=== PATIENT | female | born 2000 | race American Indian/Alaskan Native ===

== ENCOUNTER → 2024-10-04 | Outpatient (BNVA) | payer OTHER, SELFPAY | END | disposition home or self-care (01) | PROVIDERS: PCP Nurse Practitioner Family; Referring Provider Nurse Practitioner Family; Visit Provider Urology | DX: N39.0 Urinary tract infection, site not specified (principal); G40.802 Other epilepsy, not intractable, without status epilepticus | CPT/HCPCS: 81003; 99212; G0463 ==

== ENCOUNTER → 2024-10-04 | Outpatient (CLI) | payer OTHER, SELFPAY ==
[2024-10-04 16:22] LABS: Collection Type, Urine Clean Catch
[2024-10-04 17:36] LABS: Bacteria,Urine Rare; Bilirubin,Urine Negative (Negative); Blood,Urine Trace (Negative); Color,Urine Yellow (Lt Yel-Yel); Glucose, Urine Negative (Negative); Ketones,Urine Negative (Negative); Leukocyte Esterase,Urine Positive (Negative); Nitrite,Urine Negative (Negative); Protein,Urine Trace (Neg - Trace); RBC,Urine 6 /hpf (0-3); Specific Gravity,Urine 1.028 (1.001-1.035); Squamous Epithelial Cell,Urine 1 /hpf (0-5); WBC,Urine 62 /hpf (0-5)
[2024-10-04 17:38] LABS: Clarity,Urine Hazy (Clear/Hazy); Culture Indicated,Urine Yes
== END | disposition home or self-care (01) ==
LOC: SLDO 16:10
PROVIDERS: Referring Provider Urology; Visit Provider Urology
DX: N39.0 Urinary tract infection, site not specified (principal)
CPT/HCPCS: 81001; 87077; 87086; 87186

== ENCOUNTER → 2024-11-15 | Outpatient (CLI) | payer OTHER, SELFPAY ==
--- NOTE | 2024-11-15 09:00 | XR_ITS ---
Exam voiding cystourethrogram. INDICATION: Recurrent UTIs DATE: 11/15/2024, 8:41 AM Fluoroscopy time: 2.7 minutes Dose: 244.18 mGy FINDINGS: A total of 500 cc of Cystografin was instilled into the bladder through a Serrano catheter under direct fluoroscopic evaluation. Bladder appeared to fill normally without evidence of contour abnormality or filling defects. No evidence of vesicoureteral reflux seen. Fluoroscopic evaluation during voiding demonstrated normal complete emptying bladder. Again no evidence of vesicoureteral reflux. No evidence of filling defects or masses. IMPRESSION: Normal voiding cystourethrogram as above
== END | disposition home or self-care (01) ==
PROVIDERS: PCP Nurse Practitioner Family; Referring Provider Urology; Visit Provider Urology
DX: N39.0 Urinary tract infection, site not specified (principal)
CPT/HCPCS: 51600; 74455; Q9958

== ENCOUNTER → 2025-01-14 | Outpatient (CLI) | payer OTHER, SELFPAY ==
--- NOTE | 2025-01-14 14:00 | XR_ITS ---
Examination: Bone densitometry Date and time of exam:January 14, 2025 1411 hours INDICATIONS: Premenopausal, medication for seizures 7 years Technique: Lumbar spine and hip total bone mineralization values of an calculated. Peak reference and age match control results have been displayed. Findings: Lumbar spine total bone mineralization is0.964 gm/cm2. This is 0.8 standard deviations below peak reference. This is 0.7 standard deviations below age-matched controls. Hip total bone mineralization is 0.945 gm/cm2 This is 0.0 standard deviations at peak reference. This is 0.0 standard deviations at age-matched controls Impression: There is normal mineralization based on lumbar spine measurements. There is normal mineralization based on hip measurements
== END | disposition home or self-care (01) ==
LOC: CDIM 13:44
PROVIDERS: Referring Provider Nurse Practitioner Family; Visit Provider Nurse Practitioner Family
DX: Z13.820 Encounter for screening for osteoporosis (principal)
CPT/HCPCS: 77080

== ENCOUNTER → 2025-03-04 | Outpatient (BNVA) | payer OTHER, SELFPAY | END | disposition home or self-care (01) | PROVIDERS: PCP Nurse Practitioner Family; Referring Provider Nurse Practitioner Family; Visit Provider Urology | DX: R35.0 Frequency of micturition (principal); Z87.440 Personal history of urinary (tract) infections | CPT/HCPCS: 81003; 99212; G0463 ==

== ENCOUNTER → 2025-03-29 | Outpatient (BNVA) | payer OTHER, SELFPAY | END | disposition home or self-care (01) | PROVIDERS: PCP Nurse Practitioner Family; Referring Provider Nurse Practitioner Family; Visit Provider Physician Assistant | DX: N39.0 Urinary tract infection, site not specified (principal); M54.50 Low back pain, unspecified; Z87.442 Personal history of urinary calculi | CPT/HCPCS: 99212; G0463 ==

== ENCOUNTER → 2025-04-30 | Outpatient (CLI) | payer OTHER, SELFPAY ==
--- NOTE | 2025-04-30 10:00 | XR_ITS ---
Examination: MRI lumbar spine without contrast Date and time of exam: April 30, 2025 1046 hours INDICATIONS: Seizures with injury to the back, back pain 8 years radiating down the legs Technique: Multiple MRI axial and sagittal sections lumbar spine. Sagittal T2-weighted images, TR 3500, TE 118 T1 weighted transverse sections, TR 688 T8.5, T2-weighted sagittal sections T1 weighted sagittal sections TR 621, TE 30 T2 axial sections, TR 4, 190, TE 84. Findings: Adequate alignment lumbar vertebral bodies No lumbar fracture. Normal marrow signal lumbar vertebral bodies. Disc desiccation L5-S1. No spondylolisthesis. L5-S1 4 mm central left paracentral disc bulge extending to the left foramen with mild left L5 ganglionic compression More cephalad levels unremarkable IMPRESSION: L5-S1 4 mm central left paracentral left foraminal disc bulge producing mild left L5 ganglionic compression
--- NOTE | 2025-04-30 11:44 | XR_ITS ---
Examination: CT brain head without contrast. 2-D sagittal coronal reconstructions Date and time of exam:April 30, 2025 1215 hours INDICATIONS: Seizure 2 days ago, history brain surgery COMPARISON: May 10, 2019 CTDI: vol (mGy):47.2 DLP: (mGycm):1017 Technique: Multiple CT axial sections of the brain have been obtained, 5 mm slice thickness. Contrast has not been administered. 2-D sagittal, coronal reconstructions have been obtained Low dose protocols were performed. One or more of the following dose reduction techniques were used; automated exposure control, adjustment of the mA and/or KV according to patient size, use of iterative reconstruction technique. Findings: Right temporal bone craniotomy defect right temporal lobe encephalomalacia again depicted Ventricles are not enlarged No mass effect upon the ventricular system No acute hemorrhage No cranial vault fracture IMPRESSION: No interval acute hemorrhage or mass effect Consider elective MRI brain follow-up, seizure protocol
== END | disposition home or self-care (01) ==
PROVIDERS: PCP Nurse Practitioner Family; Referring Provider Nurse Practitioner Family; Visit Provider Nurse Practitioner Family
DX: G95.20 Unspecified cord compression (principal); M51.370 Other intervertebral disc degeneration, lumbosacral region with discogenic back pain only; R56.9 Unspecified convulsions; Z98.890 Other specified postprocedural states
CPT/HCPCS: 70450; 72148

== ENCOUNTER → 2025-05-09 | Outpatient (CLI) | payer OTHER, SELFPAY ==
--- NOTE | 2025-05-09 14:00 | XR_ITS ---
Examination: Retroperitoneal ultrasound, complete Technique: Multiple high resolution grayscale images of the retroperitoneum obtained, including kidneys and bladder. Exam date and time:May 09, 2025 1414 hours INDICATIONS: Hematuria episodes years, diagnosis disorders of kidney and ureters several years FINDINGS: Right kidney 11.9 cm cortex 1.5 cm Left kidney 12.5 cm cortex 2.0 cm Mild scar formation Contracted urinary bladder IMPRESSION: Mild bilateral renal parenchymal scar formation
== END | disposition home or self-care (01) ==
LOC: CDIM 13:53
PROVIDERS: PCP Nurse Practitioner Family; Referring Provider Nurse Practitioner Family; Visit Provider Nurse Practitioner Family
DX: N28.89 Other specified disorders of kidney and ureter (principal)
CPT/HCPCS: 76770

== ENCOUNTER → 2025-06-10 | Outpatient (CLI) | payer OTHER, SELFPAY ==
[2025-06-10 12:47] LABS: Collection Type, Urine Clean Catch
[2025-06-10 13:43] LABS: Bilirubin,Urine Negative (Negative); Blood,Urine Negative (Negative); Clarity,Urine Turbid (Clear/Hazy); Color,Urine Yellow (Lt Yel-Yel); Glucose, Urine Negative (Negative); Ketones,Urine Negative (Negative); Leukocyte Esterase,Urine Positive (Negative); Nitrite,Urine Negative (Negative); PH,Urine 5.5 (5.0-7.0); Protein,Urine Negative (Neg - Trace); RBC,Urine 2 /hpf (0-3); Specific Gravity,Urine 1.023 (1.001-1.035); Squamous Epithelial Cell,Urine 12 /hpf (0-5); Urobilinogen,Urine Negative mg/dL (0.0-1.0); WBC,Urine 15 /hpf (0-5)
== END | disposition home or self-care (01) ==
LOC: SLDO 12:33
PROVIDERS: Referring Provider Urology; Visit Provider Urology
DX: N39.0 Urinary tract infection, site not specified (principal)
CPT/HCPCS: 81001; 87086

== ENCOUNTER → 2025-06-11 | Outpatient (BNVA) | payer OTHER, SELFPAY | END | disposition home or self-care (01) | PROVIDERS: PCP Nurse Practitioner Family; Referring Provider Nurse Practitioner Family; Visit Provider Urology | DX: N39.0 Urinary tract infection, site not specified (principal); M54.9 Dorsalgia, unspecified; E66.9 Obesity, unspecified; Z68.27 Body mass index [BMI] 27.0-27.9, adult; Z87.440 Personal history of urinary (tract) infections; Z80.52 Family history of malignant neoplasm of bladder; Z80.3 Family history of malignant neoplasm of breast | CPT/HCPCS: 81003; 99212; G0463 ==

== ENCOUNTER → 2025-07-05 | Outpatient (CLI) | payer BC, SELFPAY ==
--- NOTE | 2025-07-05 09:24 | XR_ITS ---
Examination: Wrist, left 3 views Technique: Wrist AP, oblique, lateral 3 views Date and time of exam: July 05, 2025, 0947 hours INDICATIONS: Left wrist pain beginning 2 days ago. FINDINGS: No fracture or dislocation No arthritic change, no foreign body IMPRESSION: Negative for osseous abnormality
--- NOTE | 2025-07-05 09:24 | XR_ITS ---
Examination: Hand, left 3 views Technique: Hand AP, oblique, lateral 3 views Date and time of exam: July 05, 2025, 0942 hours INDICATIONS: Injury to the hand 2 days ago, hand pain FINDINGS: No acute fracture No dislocation No foreign body IMPRESSION: No acute fracture
== END | disposition home or self-care (01) ==
LOC: SDIM 09:16
PROVIDERS: PCP Nurse Practitioner Family; Referring Provider Nurse Practitioner Family; Visit Provider Nurse Practitioner Family
DX: S69.92XA Unspecified injury of left wrist, hand and finger(s), initial encounter (principal); W01.0XXA Fall on same level from slipping, tripping and stumbling without subsequent striking against object, initial encounter
CPT/HCPCS: 73110; 73130